=== PATIENT | female | born 1960 | race Asian ===

== ENCOUNTER 2016-06-11 08:56 | Outpatient (CLI) | payer MEDICAID ==
--- NOTE | 2016-06-11 09:27 | XRay Report ---
ROUTINE CHEST, TWO VIEWS: PA and lateral views demonstrate the heart and mediastinal contour to be of normal size and shape. The lungs are clear and fully expanded and the soft tissues and bony structures are normal. IMPRESSION: Normal study.
== END 2016-06-11 08:57 | disposition home or self-care (01) ==
LOC: XRAY 08:56
PROVIDERS: ATTEND Otolaryngology
DX: R06.02 Shortness of breath (principal)
CPT/HCPCS: 71020

== ENCOUNTER 2016-08-07 07:00 | Outpatient (CLI) | payer MEDICAID ==
--- NOTE | 2016-08-10 11:42 | Ultrasound Report ---
Thyroid sonogram: History: Nontoxic single thyroid nodule. Findings: The right lobe measures 6 x 1.5 x 1.8 cm. Well defined circumscribed isoechoic masses are well defined capsule measuring 1.3 x 1 x 1 cm in diameter noted at mid right lobe. No central color flow. No calcification. 2 benign spongy nodules are identified at the right upper lobe measuring up to 0.9 cm. Left lobe measures 6.1 x 2 x 2.2 cm. Benign spongy nodule identified left upper pole and left lower pole. Measures 0.5 x 0.3 x 0.4 cm at upper pole and 0.7 x 0.5 x 0.4 cm lower pole. Isthmus appears unremarkable. Impression: The large right lobe nodule is probably benign. Six-month followup recommended. Smaller nodules appear to be benign.
== END 2016-08-07 07:01 | disposition home or self-care (01) ==
LOC: US 07:00
PROVIDERS: ATTEND Otolaryngology
DX: E04.1 Nontoxic single thyroid nodule (principal)
CPT/HCPCS: 76536

== ENCOUNTER 2016-10-08 08:54 | Day surgery (SDC) | payer MEDICAID ==
--- NOTE | 2016-10-08 10:19 | Short Stay Summary ---
Short Stay Documentation Date of service: 10/08/16 - History Principal diagnosis: right thyroid nodule H&P: obtained from office - Allergies and Medications Current Medications: Allergies CONTRAST Allergy (Severe, Uncoded 07/31/16 11:19) Rash Home Medications Medication Instructions Recorded Confirmed Last Taken Type Amoxicillin/Potassium Clav 1 each PO BID 10/08/16 10/08/16 10/05/16 History [Amox-Clav 250-125 mg Tablet] Azelastine HCl [Azelastine HCl 1 drop OU BID 10/08/16 10/08/16 10/05/16 History 0.05%] Cetirizine HCl [Allergy Relief] 10 mg PO DAILY 10/08/16 10/08/16 10/05/16 History Flunisolide [Aerospan] 8.9 gm IH BID 10/08/16 10/08/16 10/05/16 History Gabapentin [Neurontin] 300 mg PO Q8HR 10/08/16 10/08/16 10/05/16 History Meloxicam [Mobic] 15 mg PO DAILY 10/08/16 10/08/16 10/05/16 History Tizanidine HCl [tiZANidine] 2 mg PO TID 10/08/16 10/08/16 10/05/16 History cycloSPORINE [Restasis 0.05%] 1 drop OP BID 10/08/16 10/08/16 10/07/16 History - Physical exam General appearance: no acute distress HEENT: Other (small palpable right thyroid nodule) - Brief post op/procedure progress note Date of procedure: 10/08/16 Pre-op diagnosis: right thyroid nodule Post-op diagnosis: same Procedure: US thyroid biopsy Anesthesia: local Surgeon: BRE OSPINA Estimated blood loss: none Pathology: list (FNA X 2) Specimen disposition: to lab Condition: stable - Disposition Condition at discharge: Good Disposition: [id number] TO HOME OR SELFCARE
[2016-10-08 10:41] VITALS: BP 118/79
--- NOTE | 2016-10-08 11:02 | Ultrasound Report ---
ULTRASOUND BIOPSY THYROID History: Nontoxic single thyroid nodule, right. Procedure: Informed consent was obtained. Sterile technique was utilized. 1% lidocaine for skin anesthesia. Using ultrasound guidance, 2 fine needle aspirations were obtained from a 1.4 cm right thyroid lobe nodule. The samples were deemed adequate by the pathologist on site. No complications. Impression: Successful ultrasound-guided fine needle aspiration of a 1.4 cm right thyroid mass.
== END 2016-10-08 10:58 | disposition home or self-care (01) ==
LOC: OPU 08:54 → EDSTATUS 09:00 → OPU 10:58
PROVIDERS: ATTEND Otolaryngology
DX: E04.1 Nontoxic single thyroid nodule (principal); Z91.041 Radiographic dye allergy status; Z87.891 Personal history of nicotine dependence
CPT/HCPCS: 60100; 76942; 88112; 88172; 88173; 88305